=== PATIENT | female | born 1965 | race Two or more races ===

== ENCOUNTER 2017-11-04 00:19 | Inpatient (IN) | payer MEDICARE, MEDICAID ==
[~2017-11-04] VITALS: Ht 170.2 cm; Wt 106.6 kg
[2017-11-04] MEDS ORDERED: ALBUTEROL (0.083%) 2.5MG/3ML NEB HHN STA (02:40)
[2017-11-04] MEDS ORDERED: MAGNESIUM 2 G PREMIX 50 ML IV STA (02:40)
[2017-11-04] MEDS ORDERED: HYDROCODONE/ACETAMINOPHEN 5/325MG TABLET PO STA (02:40)
[2017-11-04] MEDS ORDERED: IPRATROPIUM BROMIDE (0.02%) 0.5MG/2.5ML NEB HHN STA (02:40)
[2017-11-04] MEDS ORDERED: METHYLPREDNISOLONE SOD SUCC 125 MG/2 ML VIAL IV STA (02:40)
[2017-11-04] MEDS ORDERED: LEVOFLOXACIN 750MG PREMIX 150 ML IV STA (02:40)
[2017-11-04] MEDS ORDERED: NITROGLYCERIN OINT 1GM/INCH UDPKT TD ONE (02:45)
[2017-11-04] MEDS ORDERED: ASPIRIN 81MG TABLET PO ONE (02:45)
[2017-11-04] MEDS ORDERED: ALBUTEROL (0.5%) 2.5MG/0.5ML NEB HHN ONE (03:14)
[2017-11-04] MEDS ORDERED: IPRATROPIUM/ALBUTEROL 0.5-3(2.5)MG/3ML NEB ONE (03:14)
[2017-11-04 03:23] LABS: CHLORIDE 107 mEq/L (98-107)
[2017-11-04 03:24] LABS: BASOPHILS % 0.3 % (0.0-2.0); EOSINOPHILS % 2.3 % (0.0-5.0); HEMATOCRIT. 35.2 % (36.0-48.0); HEMOGLOBIN. 11.6 g/dL (12.0-16.0); LYMPHOCYTES % 16.2 % (20.0-50.0); MEAN CORPUSCULAR VOLUME 87.4 fL (81.0-99.0); MONOCYTES % 4.8 % (2.0-8.0); NEUTROPHILS % 76.4 % (40.0-76.0); PLATELET 324 x1000/uL (130-400); RED BLOOD CELL COUNT 4.02 mill/uL (4.2-5.4); RED CELL DISTRIBUTION WIDTH 14.7 % (11.6-14.6)
[2017-11-04 03:27] LABS: ETHANOL BLOOD < 10 mg/dL
[2017-11-04 03:28] LABS: INR 0.9; PROTHROMBIN TIME 9.5 sec (9.4-11.6)
[2017-11-04 03:48] LABS: BG BASE EXCESS -2.5 mmol/L (-2.0-2.0); BG CARBOXYHEMOGLOBIN 0.8 % (0.5-1.5); BG DEOXYHEMOGLOBIN 3.1 % (0.0-5.0); BG FRACTION INSPIRED OXYGEN 21; BG HCO3 ACT 21.2 mmol/L (22.0-26.0); BG METHEMOGLOBIN 0.3 % (0.0-1.5); BG OXYGEN SATURATION 96.9 % (92.0-98.5); BG OXYHEMOGLOBIN 95.8 % (94.0-97.0); BG PCO2 32.9 mmHg (35.0-45.0); BG PH 7.426 (7.350-7.450); BG PO2 89.8 mmHg (75.0-100.0); BG SAMPLE SITE RIGHT RADIAL; BG TOTAL HEMOGLOBIN 11.9 g/dL (12.0-18.0); BG VENT MODE ROOM AIR
[2017-11-04] MEDS ORDERED: SODIUM CHLORIDE 0.9% 1000ML BAG (SEPSIS BOLUS) IV ONE (04:15)
[2017-11-04] MEDS ORDERED: INSULIN REGULAR (HUMULIN R) 300UNITS/3ML IV SCH (04:17)
[2017-11-04 04:26] LABS: CLARITY URINE CLEAR (CLEAR); COLOR URINE YELLOW (YELLOW); KETONES URINE TRACE (NEGATIVE); LEUKOCYTE ESTERASE URINE 1+ (NEGATIVE); NITRITE URINE NEGATIVE (NEGATIVE); OCCULT BLOOD URINE 1+ (NEGATIVE); PROTEIN URINE 1+ (NEGATIVE); SPECIFIC GRAVITY URINE 1.026 (1.005-1.030); UROBILINOGEN URINE 0.2 E.U./dL (0.2-1.0)
[2017-11-04 04:52] LABS: *AMPHETAMINES SCREEN URINE NEGATIVE (NEGATIVE); *BARBITURATES SCREEN URINE NEGATIVE (NEGATIVE); *BENZODIAZEPINES SCREEN URINE NEGATIVE (NEGATIVE); *COCAINE SCREEN URINE NEGATIVE (NEGATIVE); CANNABINOID URINE SCREEN NEGATIVE (NEGATIVE); METHADONE URINE SCREEN NEGATIVE (NEGATIVE); OPIATES URINE SCREEN NEGATIVE (NEGATIVE); PHENCYCLIDINE URINE SCREEN NEGATIVE (NEGATIVE)
[2017-11-04 09:08] VITALS: BP 125/62
[2017-11-04] MEDS ORDERED: GABA-290 MT (10:19)
[2017-11-04] MEDS ORDERED: LISI10TA5 MT (10:20)
[2017-11-04] MEDS ORDERED: METF10004 MT (10:22)
[2017-11-04] MEDS ORDERED: GLIP10TA10 MT (10:22)
[2017-11-04] MEDS ORDERED: PRAV10TA35 MT (10:24)
[2017-11-04] MEDS ORDERED: MONT10TA24 MT (10:31)
[2017-11-04] MEDS ORDERED: PARO30TA62 MT (10:32)
[2017-11-04] MEDS ORDERED: LORA10TA7 MT (10:33)
[2017-11-04] MEDS ORDERED: MIRT7.5T11 MT (10:33)
[2017-11-04] MEDS ORDERED: HYDROCODONE/ACETAMINOPHEN 5/325MG TABLET PO NR (11:15)
[2017-11-04] MEDS ORDERED: ONDANSETRON HCL 4MG/2ML VIAL IV PRN (12:00)
[2017-11-04] MEDS ORDERED: MAGNESIUM/ALUMINUM HYDROXIDE/SIMETHICONE 30ML UDC PO PRN (12:00)
[2017-11-04] MEDS ORDERED: CLONIDINE 0.1MG TABLET PO PRN (12:00)
[2017-11-04] MEDS ORDERED: DOCUSATE SODIUM 100MG CAPSULE PO PRN (12:00)
[2017-11-04] MEDS ORDERED: INSULIN LISPRO 100 UNITS/ML SUBCUT SCH ×2 (12:15→17:15)
[2017-11-04] MEDS ORDERED: ONDANSETRON 4MG ODT PO PRN (12:15)
[2017-11-04] MEDS ORDERED: DEXTROSE 50% WATER 50ML SYRINGE IV PRN (12:15)
[2017-11-04] MEDS: IPRATROPIUM/ALBUTEROL 0.5-3(2.5)MG/3ML NEB INH PRN ×2 (12:48→21:20)
[2017-11-04 13:12] LABS: PHOSPHORUS 3.9 mg/dL (2.5-4.9)
[2017-11-04] MEDS: INSULIN LISPRO 100 UNITS/ML SUBCUT SCH ×3 (13:30→20:54)
[2017-11-04] MEDS ORDERED: LORATADINE 10MG TABLET PO SCH (15:30)
[2017-11-04] MEDS: GABAPENTIN 300MG CAPSULE PO SCH ×2 (15:40→22:15)
[2017-11-04] MEDS: PAROXETINE HCL 10MG TABLET PO SCH (15:40)
[2017-11-04] MEDS: LISINOPRIL 10MG TABLET PO SCH (15:40)
[2017-11-04] MEDS: LORATADINE 10MG TABLET PO SCH (15:40)
[2017-11-04 16:00] VITALS: BP 126/69
[2017-11-04] MEDS ORDERED: MONTELUKAST SODIUM 10MG TABLET PO SCH (17:00)
[2017-11-04] MEDS: BLOOD SUGAR DIAGNOSTIC STRIP TEST SCH ×2 (17:02→20:40)
[2017-11-04 20:00] VITALS: BP 109/56
[2017-11-04] MEDS: FAMOTIDINE 20MG/2ML VIAL IV SCH (20:41)
[2017-11-04] MEDS ORDERED: MIRTAZAPINE 15MG TABLET PO SCH (21:00)
[2017-11-04] MEDS ORDERED: PANTOPRAZOLE 40MG DR TABLET PO SCH (21:00)
[2017-11-04] MEDS: BUDESONIDE 0.5MG/2ML NEB HHN SCH (21:18)
[2017-11-04] MEDS: ARFORMOTEROL TARTRATE 15MCG/2ML NEB NEB SCH (21:19)
[2017-11-05] VITALS: BP 114/63
[2017-11-05 04:00] VITALS: BP 123/73
[2017-11-05] MEDS: BLOOD SUGAR DIAGNOSTIC STRIP TEST SCH ×2 (05:48→11:45)
[2017-11-05] MEDS: INSULIN LISPRO 100 UNITS/ML SUBCUT SCH ×2 (06:20→13:05)
[2017-11-05 07:17] LABS: BASOPHILS % 0.2 % (0.0-2.0); EOSINOPHILS % 0.4 % (0.0-5.0); HEMATOCRIT. 32.1 % (36.0-48.0); HEMOGLOBIN. 10.8 g/dL (12.0-16.0); LYMPHOCYTES % 20.2 % (20.0-50.0); MEAN CORPUSCULAR HEMOGLOBIN 29.3 pg (28.0-32.0); MEAN CORPUSCULAR VOLUME 87.3 fL (81.0-99.0); MEAN PLATELET VOLUME 8.3 fl (7.4-10.4); MONOCYTES % 4.7 % (2.0-8.0); NEUTROPHILS % 74.5 % (40.0-76.0); PLATELET 290 x1000/uL (130-400); RED BLOOD CELL COUNT 3.68 mill/uL (4.2-5.4); RED CELL DISTRIBUTION WIDTH 14.9 % (11.6-14.6)
[2017-11-05 08:00] VITALS: BP 126/75
[2017-11-05 08:21] LABS: CHLORIDE 106 mEq/L (98-107)
[2017-11-05] MEDS: GABAPENTIN 300MG CAPSULE PO SCH (08:21)
[2017-11-05] MEDS: LISINOPRIL 10MG TABLET PO SCH (08:21)
[2017-11-05] MEDS: LORATADINE 10MG TABLET PO SCH (08:21)
[2017-11-05] MEDS: PAROXETINE HCL 10MG TABLET PO SCH (08:21)
[2017-11-05] MEDS: FAMOTIDINE 20MG/2ML VIAL IV SCH (08:22)
[2017-11-05] MEDS: IPRATROPIUM/ALBUTEROL 0.5-3(2.5)MG/3ML NEB INH PRN (10:00)
[2017-11-05] MEDS: ARFORMOTEROL TARTRATE 15MCG/2ML NEB NEB SCH (10:01)
[2017-11-05] MEDS: BUDESONIDE 0.5MG/2ML NEB HHN SCH (10:01)
[2017-11-05] MEDS ORDERED: MOME13HF INH (11:03)
[2017-11-05] MEDS ORDERED: ALBUTEROL 6.7GM HFA INHALER ORI PRN (11:15)
[2017-11-05 12:00] VITALS: BP 120/69
[2017-11-05 15:06] VITALS: BP 116/84
[2017-11-05 16:00] VITALS: BP 116/84
== END 2017-11-05 16:35 | disposition home or self-care (01) | DRG 189 ==
LOC: ER 00:19 → 5WST 02:53 → ENRESERV 07:30
PROVIDERS: ADMIT Internal Medicine; ATTEND Internal Medicine
DX: J96.00 Acute respiratory failure, unspecified whether with hypoxia or hypercapnia (principal); J45.901 Unspecified asthma with (acute) exacerbation; E87.2 Acidosis; J44.1 Chronic obstructive pulmonary disease with (acute) exacerbation; N39.0 Urinary tract infection, site not specified; D64.9 Anemia, unspecified; E11.65 Type 2 diabetes mellitus with hyperglycemia; E66.9 Obesity, unspecified; E78.00 Pure hypercholesterolemia, unspecified; F32.9 Major depressive disorder, single episode, unspecified; F41.9 Anxiety disorder, unspecified; G47.33 Obstructive sleep apnea (adult) (pediatric); I10 Essential (primary) hypertension; K21.9 Gastro-esophageal reflux disease without esophagitis; Z79.51 Long term (current) use of inhaled steroids; Z79.84 Long term (current) use of oral hypoglycemic drugs; Z68.36 Body mass index [BMI] 36.0-36.9, adult; Z90.49 Acquired absence of other specified parts of digestive tract; Z98.82 Breast implant status; Z98.84 Bariatric surgery status
CPT/HCPCS: 36415; 36600; 71045; 80048; 80053; 80061; 80305; 81003; 82375; 82550; 82553; 82805; 82962; 83605; 83690; 83735; 83880; 84100; 84145; 84443; 84484; 85025; 85610; 87040; 87086; 93005; 96365; 96366; 96368; 96375; 99285; G0482; J1815; J1956; J2930; J3475; J3490; J7030; J7611; J7620; J7626